=== PATIENT | male | born 1940 | race Caucasian/White ===

== ENCOUNTER 2018-01-20 18:34 | Inpatient (IN) | payer OTHER ==
[~2018-01-20] VITALS: Ht 182.9 cm; Wt 59.0 kg
[2018-01-20 18:35] VITALS: BP 137/65
[2018-01-20] MEDS ORDERED: LANTUS100 UNIT/M SUBQ (18:44)
[2018-01-20] MEDS ORDERED: HUMULIN R100 UNIT/M SUBQ (18:44)
[2018-01-20 18:59] LABS: ABSOLUTE NEUTROPHILS 4.8 thou/uL (1.4-8.2); BASOPHILS 1.1 % (0.0-2.0); EOSINOPHILS 3.7 % (0.0-3.0); HEMATOCRIT 38.3 % (42.0-52.0); HEMOGLOBIN 12.8 gm/dL (14.0-18.0); LYMPHOCYTES 12.9 % (24.0-44.0); MCH 28.4 pg (26.0-34.0); MCHC 33.3 g/dL (28.0-37.0); MCV 85.2 fL (80.0-100.0); MONOCYTES 8.9 % (1.0-8.0); PLATELET COUNT 207 thou/uL (150-400); POLYS 73.4 % (36.0-66.0); RBC 4.49 mil/uL (4.50-6.00); RDW 14.9 % (10.5-14.5); WBC 6.6 thou/uL (4.0-11.0)
[2018-01-20 19:03] LABS: CALCIUM 8.8 mg/dL (8.5-10.1); CREATININE 1.1 mg/dL (0.7-1.3); POTASSIUM 3.9 mmol/L (3.5-5.1)
[2018-01-20 19:09] LABS: ALBUMIN 3.5 g/dL (3.4-5.0); TOTAL BILIRUBIN 0.4 mg/dL (<0.1-1.0); TOTAL PROTEIN 7.1 g/dL (6.4-8.2)
[2018-01-20 19:43] LABS: URINE BILIRUBIN NEGATIVE (Negative); URINE BLOOD NEGATIVE (Negative); URINE CLARITY CLEAR; URINE COLOR YELLOW; URINE GLUCOSE-RANDOM* TRACE (Negative); URINE KETONES NEGATIVE (Negative); URINE LEUKOCYTES-REFLEX NEGATIVE (Negative); URINE NITRITE-REFLEX NEGATIVE (Negative); URINE PROTEIN (DIPSTICK) NEGATIVE (Negative); URINE SPECIFIC GRAVITY 1.025 (1.005-1.035); URINE UROBILINOGEN 0.2 E.U./dl (0.2-1.0)
[2018-01-20 21:24] VITALS: BP 138/47
[2018-01-20 21:51] VITALS: BP 122/41
[2018-01-21 04:17] VITALS: BP 133/60
[2018-01-21 08:34] VITALS: BP 151/58
[2018-01-21] MEDS ORDERED: GLUCAGON HCL1 MG IM (13:24)
[2018-01-21] MEDS ORDERED: GLUCAGON EMERGEN1 MG SUBQ (13:27)
[2018-01-21 16:48] VITALS: BP 151/58
[2018-01-21 19:11] LABS: GLYCOHEMOGLOBIN (HGB A1C) 6.8 % (4.8-5.6)
== END 2018-01-21 17:36 | disposition home or self-care (01) | DRG 638 ==
LOC: ER 18:34 → EROBS 21:06 → 4E 21:57
PROVIDERS: Nurse Practitioner Acute Care; Physician Assistant
DX: E11.649 Type 2 diabetes mellitus with hypoglycemia without coma (principal); Z68.1 Body mass index [BMI] 19.9 or less, adult; Z79.899 Other long term (current) drug therapy; Z79.4 Long term (current) use of insulin; Z82.49 Family history of ischemic heart disease and other diseases of the circulatory system; Z81.1 Family history of alcohol abuse and dependence; R63.4 Abnormal weight loss
CPT/HCPCS: 10783